=== PATIENT | female | born 1995 | race Hispanic/Latino ===

== ENCOUNTER 2021-03-15 13:02 | Day surgery (SDC) | payer BC, OTHER, SELFPAY ==
[2021-03-15] MEDS ORDERED: LIDOCAINE 1% MPF 5 ML VIAL ONE ×2 (13:46→15:14)
[2021-03-15] MEDS ORDERED: BUPIVACAINE 0.5% PF 10 ML VIAL ONE (13:46)
[2021-03-15] MEDS ORDERED: LIDOCAINE 1% 20 ML MDV ONE (13:47)
[2021-03-15] MEDS ORDERED: TETANUS & DIPHTHERIA TOX,ADULT 0.5 ML VIAL ONE (14:00)
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
[2021-03-15] MEDS ORDERED: CEFAZOLIN SODIUM 1 GM/VIAL ONE (14:41)
[2021-03-15] MEDS ORDERED: CLINDAMYCIN 900MG/D5W 900 MG/50 ML IVPB IV ONE (14:42)
[2021-03-15] MEDS ORDERED: CEFAZOLIN/SWI 1gm 1 GM/10 ML SYR ONE (14:45)
[2021-03-15 14:50] LABS: Urine Blood Trace-intact (Negative); Urine Glucose Negative (Negative); Urine Protein 2+ (Negative); Urine Specific Gravity >=1.030 (1.005-1.030)
[2021-03-15 14:53] LABS: Absolute Lymphocytes (CBC) 2.1 K/uL (0.7-4.9); Basophils % 0.5 % (0-1.3); Hematocrit 42.4 % (36.0-45.0); Lymphocytes % 18.3 % (15.3-44.8); MPV 8.9 fL (7.6-11.3); RBC Red Blood Cell Count 4.71 M/uL (3.86-4.86)
[2021-03-15] MEDS ORDERED: MORPHINE 2 MG/ML SYR IV PRN (14:59)
[2021-03-15] MEDS ORDERED: ONDANSETRON 4 MG/2 ML VIAL IV PRN (14:59)
[2021-03-15] MEDS ORDERED: NA CHLORIDE 0.9% 1,000 ML IV SCH (15:00)
[2021-03-15 15:02] VITALS: O2SAT 100
[2021-03-15 15:08] LABS: BUN Blood Urea Nitrogen 8 mg/dL (7-18); Bicarbonate 26 mmol/L (21-32); Glucose Level 105 mg/dL (74-106); Potassium 3.8 mmol/L (3.5-5.1); Sodium Level 140 mmol/L (136-145)
[2021-03-15] MEDS ORDERED: propofoL 200 MG/20 ML VIAL IV ONE (15:14)
[2021-03-15] MEDS ORDERED: MIDAZOLAM HCL 2 MG/2 ML INJ ONE (15:14)
[2021-03-15] MEDS ORDERED: FENTANYL CITR 100 MCG/2 ML ONE (15:14)
[2021-03-15] MEDS ORDERED: Ringers Lactate 1,000 ML IV ONE (15:21)
[2021-03-15] MEDS ORDERED: dexAMETHasone 10 MG/ML VIAL ONE (15:51)
[2021-03-15] MEDS ORDERED: ONDANSETRON 4 MG/2 ML VIAL ONE (15:58)
[2021-03-15] MEDS ORDERED: KETOROLAC 30 MG/ML INJ ONE (15:58)
[2021-03-15] MEDS ORDERED: MEPERIDINE HCL 25 MG/ML SYR ONE (16:19)
[2021-03-15 16:56] VITALS: BP 128/80; TEMP 98.7
[2021-03-15 20:19] LABS: Urine Specific Gravity/Preg >1.030 (1.005-1.030)
--- NOTE | 2021-03-16 01:32 | OP ---
Surgeon: Pa Cristobal MD Preoperative Diagnosis: Amputation of tip of the left little finger. Postoperative Diagnosis: Amputation of tip of the left little finger. Procedure Performed: Debridement of skin and subcutaneous tissue, bone flap closure. Anesthesia: General. Procedure In Detail: After satisfactory anesthesia, the left hand was prepped with Betadine scrub an d paint. Dry sterile drapes were applied in the usual manner. The arm was elevated, exsanguinated w ith an Esmarch, tourniquet was inflated to 250 mmHg. Hand was placed on Roto Lock table. A scalpel was used to debride the portion of the bed over the bone fracture, and then the bone was cut square a nd filed with a file. Jet lavaged and irrigated with 1 L of dilute Betadine solution. Then the radi al based Y flap was advanced, incised, and held in place with 4-0 Prolene simple sutures. Tourniquet was released. Dressed with Xeroform, 2 inch David. The patient tolerated procedure well, returned to Recovery. GISELA/AMARI Voice ID: [id number] Report ID: [id number]
== END 2021-03-15 17:21 | disposition home or self-care (01) ==
LOC: ER 13:02 → DS 14:57
PROVIDERS: ATTEND Specialist
PROC: 0HXFXZZ Transfer Right Hand Skin, External Approach (ICD-10-PCS; 2021-03-15)
PROC: 0PDT0ZZ Extraction of Right Finger Phalanx, Open Approach (ICD-10-PCS; principal; 2021-03-15 14:00)
DX: S68.626A Partial traumatic transphalangeal amputation of right little finger, initial encounter (principal); Z23 Encounter for immunization
CPT/HCPCS: 11044; 14040; 85025; 80048; 36415; 86900; 86850; 81025; 86901; 88304; 85730; 81003; 73130; 90471; 90714; 96374; 99285; J2704; J2250; J3010; J1100; J2175; J0690; J7120; J2405